=== PATIENT | female | born 1970 | race Caucasian/White ===

== ENCOUNTER → 2016-07-28 | Outpatient (CLI) | payer BC, OTHER | LOC: RAD 01:14 | DX: Z12.31 Encounter for screening mammogram for malignant neoplasm of breast (principal) ==

== ENCOUNTER → 2017-02-14 | Outpatient (CLI) | payer OTHER | LOC: ULTRA 01:05 | DX: N60.01 Solitary cyst of right breast (principal) ==

== ENCOUNTER → 2017-09-19 | Outpatient (CLI) | payer OTHER | LOC: RAD 09:44 | DX: N60.01 Solitary cyst of right breast (principal) ==

== ENCOUNTER → 2018-11-22 | Outpatient (CLI) | payer BC, OTHER | LOC: RAD 09:06 | DX: Z12.31 Encounter for screening mammogram for malignant neoplasm of breast (principal) ==

== ENCOUNTER → 2019-06-25 | Outpatient (CLI) | payer OTHER ==
[~2019-06-25] MED LIST: ALBUTEROL0.63 MG/3 INH; DOXYCYCLINE 10100 M2 PO; ESOMEPRAZOLE MA40 MG PO; LISINOPRIL10 MG PO; MONTELUKAST SOD10 MG PO; NASACORT10.8 ML NASAL; PROAIR HFA8.5 GM INH; QVAR REDIHALE10.6 G1 INH; [UNRECOGNIZED DRUG - OTHER] PO; [UNRECOGNIZED DRUG - OTHER] TOP
== END ==
LOC: CAT 09:57
DX: Z13.6 Encounter for screening for cardiovascular disorders (principal); E78.00 Pure hypercholesterolemia, unspecified; I25.10 Atherosclerotic heart disease of native coronary artery without angina pectoris

== ENCOUNTER 2019-07-04 07:32 | Inpatient (IN) | payer BC, OTHER ==
[2019-07-04] VITALS (11 sets, daily range): BP systolic 104–150; BP diastolic 43–68
[~2019-07-04] VITALS: Ht 157.5 cm; Wt 93.4 kg
--- NOTE | ~2019-07-04 | O ---
[facility] [place] [address] OPERATIVE REPORT Name: TONY OWEN Room #: 458-P [facility] IN M.R.#: [id number] Admission: 07/04/19 Attend Phys: David Osborn MD Discharge: 07/05/19 Date of : 70 Report #: [id number] THIS REPORT FOR: //name// CC: David Carrizales MD PREOPERATIVE DIAGNOSIS: Acalculous cholecystitis. POSTOPERATIVE DIAGNOSES: Acalculous cholecystitis with cholesterolosis. PROCEDURE PERFORMED: Laparoscopic cholecystectomy with intraoperative cholangiogram. SURGEON: David Osborn MD COMPLICATIONS: None. ESTIMATED BLOOD LOSS: 5 mL. PROCEDURE NOTE: With the patient under general anesthesia, abdomen was prepped and draped in sterile fashion. IV antibiotic was administered. A 0.25% Marcaine was used to anesthetize the skin above the umbilicus. The patient has had previous laparoscopic surgery. Timeout was performed. A 2 cm incision was made above the umbilicus. The fascia was identified. Fascia was grasped with a hemostat. Fascia was then opened under visualization, 0 Vicryl suture placed on the fascia edges. Veress needle was then placed through the peritoneum. Abdominal cavity was insufflated with CO2. After creating pneumoperitoneum pressure of 15, 11 mm trocar was placed into the pneumoperitoneum, no harm to underlying tissue. Two 5 mm trocars were placed in the right upper quadrant and another 5 mm trocar was placed in the right epigastrium. Gallbladder was identified. There was a significant degree of cholesterolosis that can be visualized through the gallbladder wall. Lateral to where the gallbladder located, there was adhesion of the fat to the liver edge, which is consistent with adhesions adjacent to the gallbladder, likely from chronic inflammation. The gallbladder was lifted over the liver. The patient was placed in reverse Trendelenburg position, right side tilted up. The peritoneum was dissected free, medial and laterally over the cystic duct. The common duct was partially visualized, more medial and posteriorly located. Cystic duct was isolated. The gallbladder junction to the cystic duct was visualized. There was actually flow in here or tortuosity here. A clip was placed in the junction of cystic duct to the gallbladder. Opening was made in the cystic duct. The cystic duct was milked and there is a thickened material in the cystic duct. The cystic duct was then cleared of this material. The cholangiogram catheter was inserted. Fluoroscopic cholangiogram was obtained. At the first attempt, there was quite a bit of dye that leaked from the cannulation site. The catheter was replaced and a clip was then placed for better seal. A second run on the intraoperative [facility] [address] [place] [address] OPERATIVE REPORT Name: TONY OWEN ANTHONY Room #: 458-P [facility] IN M.R.#: [id number] Admission: 07/04/19 Attend Phys: David Osborn MD Discharge: 07/05/19 Date of : 70 Report #: [id number] cholangiogram showed that the common bile duct filled out well. No filling defect in the common duct and the cholangiogram catheter was identified in the cystic duct. No harm to the common duct. Dye flowed readily into the duodenum. The cholangiogram catheter was then removed. Proximal cystic duct was then clipped x 2 and then divided. The cystic artery branches were identified. The main branch is more lateral, posterior. This was isolated, clipped x 2 proximally and 1 distally and then divided. More anterior smaller vessel was clipped x 2 proximally and 1 distally and divided. Gallbladder was freed from the liver bed. Gallbladder was then retrieved through the infraumbilical port. Gallbladder was opened off the field, no stones identified. There is sludgy bile present and the gallbladder wall contained a significant degree of cholesterol material. Liver bed was checked, hemostasis was obtained. CO2 was evacuated. Trocars were removed. The fascia defect above the umbilicus was closed with [id number] 0 Vicryl x 2. Skin was irrigated, closed with 5-0 PDS. Steri-Strip, Band-Aids applied. The patient tolerated the procedure well and was taken to recovery room. By: 1455 1555 David Osborn MD /nt
--- NOTE | 2019-07-04 14:01 | H ---
[facility] [place] [address] HISTORY AND PHYSICAL Name: TONY OWEN Room #: 458-P ADM IN M.R.#: [id number] Admission: 07/04/19 Attend Phys: David Osborn MD Discharge: Date of : 70 Report #: [id number] THIS REPORT FOR: //name// CC: David Carrizales MD DATE OF SERVICE: 07/04/2019 PREOPERATIVE DIAGNOSES: Cholecystitis, abdominal pain. HISTORY OF PRESENT ILLNESS: The patient is a 49-year-old who has a history of abdominal pain, this started around summertime. She is complaining of nausea associated with the pain. Pain feels like a spasm. This is in the epigastric area. It does not radiate. There is associated nausea. There is associated burping. She says that when she eats, she typically feels better. At times, the pain is burning in nature. The patient has had history of acid reflux and Nexium does seem to help. The patient does not eat much greasy or spicy food. There is family history of gallbladder disease. Mother had her gallbladder removed. There were no stones. The sister also had her gallbladder removed. She did not have any stones either. At times, the patient does have loose stools, also increased frequency of stool. No urinary symptoms. The patient had an ultrasound, which did not show any gallstones. The patient underwent a PIPIDA scan, which did show an elevated ejection fraction 89%. The patient is felt to have her symptomatic gallbladder disease and she is here for laparoscopic cholecystectomy. PAST MEDICAL HISTORY: History of asthma, environmental allergy, acid reflux, overactive bladder. ALLERGIES: She is allergic to PENICILLIN, LEVAQUIN, CIPRO, BACTRIM, MACROBID, CEFTIN, ZITHROMAX, CONAZOLE CREAM. PAST SURGICAL HISTORY: The patient has had bilateral temporal tympanoplasty; mastoidectomy; meniscal tear, right knee; repaired deviated septum; bladder stretching; hysterectomy; tonsillectomy; adenoidectomy. FAMILY HISTORY: GERD and asthma. 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 She does not smoke, occasionally alcohol once a week. REVIEW OF SYSTEMS: No chest pain, shortness of breath or palpitation. PHYSICAL EXAMINATION: GENERAL: The patient is alert and oriented, well-developed, well-nourished [address] [address] HISTORY AND PHYSICAL Name: TONY OWEN ANTHONY Room #: 458-P [facility] IN M.R.#: [id number] Admission: 07/04/19 Attend Phys: David Osborn MD Discharge: Date of : 70 Report #: [id number] female. She is not in acute distress. HEENT: Pupils react to light. Extraocular muscles are intact. NECK: Soft and supple. No masses. LUNGS: Clear to auscultation. HEART: Regular rate and rhythm. No murmur or gallop. ABDOMEN: Soft, nondistended with some tenderness in the right upper quadrant. Mild tenderness in right upper quadrant. No mass, guarding, rigidity or rebound. EXTREMITIES: No cyanosis, clubbing or edema. Motor function and sensory exam normal. IMPRESSION: The patient is a 49-year-old with abdominal pain located in the epigastrium. The pain is consistent with gallbladder issues. There is family history of gallbladder disease. The patient is recommended to undergo laparoscopic cholecystectomy. The patient does not have any stones. Her PIPIDA scan showed high ejection fraction. Procedure discussed. Risk of bleeding, infection and common bile duct injury was discussed. The patient wished to proceed. <ELECTRONICALLY SIGNED> By: David Osborn MD 07/04/19 1401 [id number] [id number] David Osborn MD /nt
--- NOTE | 2019-07-04 15:05 | EKG ---
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
[2019-07-04 15:52] LABS: CALCIUM 9.2 mg/dL (8.5-10.1); CREATININE 1.2 mg/dL (0.6-1.0); POTASSIUM 3.8 mmol/L (3.5-5.1)
--- NOTE | 2019-07-04 19:34 | NUR ---
Received the pt post op, with 4 lap sites wit a band aid c/d/i/. VS stable, no signs or verbalizations of distress have been noted. On 2L of O2 via NC, pt is able to ambulate from bed to toilet and is able to void. Pain managed with medications, POC followed., Endorsed to the night nurse.
[2019-07-05 03:34] VITALS: BP 111/58
--- NOTE | 2019-07-05 07:13 | NUR ---
ASSUMED CARE AROUND 191. AXOX4. LAP SITES CDI WITH BANDAGES. TOLERATED CLEAR LIQUIDS GREAT WITHOUT ANY NAUSEA/VOMITING. DIET ADMVANCED PER MD ORDER THIS AM. NO S/S ACUTE DISTRESS NOTED OR REPORTED AT THIS TIME. CARE TRANSFERRED TO DAY RN AT THIS TIME.
[2019-07-05 08:00] VITALS: BP 110/52
[2019-07-05] MEDS ORDERED: NORCO 5-325 TA1 EAC1 PO (12:06)
[2019-07-05 12:10] VITALS: BP 110/52
--- NOTE | 2019-07-05 12:43 | NUR ---
Assumed pt care at 7am.Pt in and out of bed to br with sba.Assessment completed.vss.But low bp noted.Lisinopril held this am.Pt tolerated meds and diet.Dr Osborn here,dc order noted.Dc summary compiled and reviewed with pt and spouse.Saline lock dc'd.Rx and dc summary copy given to pt.Pt will be dc home in by 1300.
--- NOTE | 2019-07-07 15:07 | PATH ---
[facility] [address] [place] [address] PATHOLOGY RPT PROCEDURE Name: TONY SIERRA ANTHONY Room #: 458-P [facility] IN M.R.#: [id number] Admission: 07/04/19 Date of : 70 Discharge: 07/05/19 Report #: [id number] Path Case #: [id number] [facility] Accession Number: [id number] . 01 Material submitted: . gallbladder - GALLBLADDER . 01 Clinical history: . Cholecystitis . 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 . (SHA:brianne; 07/07/2019) S 07/07/2019 1150 Local . 02 Electronically signed: . Kiet Ortega MD, Pathologist NPI- [id number] . 01 Gross description: . Received in formalin labeled "Tony Sierra, gallbladder," is a previously opened gallbladder measuring 7.4 x 2.8 x 1.4 cm in greatest dimensions. The serosal surface is wrinkled to shaggy, pale pink-purcell and partially adipose-covered in appearance. The mucosal surface is light purcell to light green in appearance, extensively covered in prominent yellow highlights and measuring 0.1 cm in thickness with a gallbladder wall thickness of up to 0.2 cm. No polyps or nodules are identified grossly. Calculi are not present within the specimen or specimen container. Senior Clinical Data Coordinator sections of the infundibulum, body and fundus are submitted in cassette A1. (DAC; 07/04/2019) XDC/XDC 07/04/2019 1907 Local . 02 Pathologist provided ICD-10: K82.4, K81.1 . 02 CPT . 649831 Specimen Comment: A courtesy copy of this report has been sent to [phone] Specimen Comment: [phone] Specimen Comment: Report sent to / DR FOUNTAIN Performed at: [address], [place] [id number] [address] [address] PATHOLOGY RPT PROCEDURE Name: TONY SIERRA [facility] Room #: 458-P DIS IN M.R.#: [id number] Admission: 07/04/19 Date of : 70 Discharge: 07/05/19 Report #: [id number] Path Case #: [id number] MD Sal Fernandez MD Phone: [phone] Performed at: [address] [id number] MD Vale Feldman MD Phone: [phone]
== END 2019-07-05 13:00 | disposition home or self-care (01) | DRG 419 ==
LOC: TBA 07:32 → OR 07:32 → 4W 13:13 → OR 13:13 → ENTRNSPT 07-05 12:42 → 4W 07-05 13:00
PROVIDERS: ADMIT Surgery
PROC: 0FT44ZZ Resection of Gallbladder, Percutaneous Endoscopic Approach (ICD-10-PCS; principal; 2019-07-04)
PROC: BF131ZZ Fluoroscopy of Gallbladder and Bile Ducts using Low Osmolar Contrast (ICD-10-PCS; principal; 2019-07-04)
DX: K81.0 Acute cholecystitis (principal); K21.9 Gastro-esophageal reflux disease without esophagitis; J45.909 Unspecified asthma, uncomplicated; N32.81 Overactive bladder; Z83.79 Family history of other diseases of the digestive system; Z88.0 Allergy status to penicillin; Z88.1 Allergy status to other antibiotic agents; Z88.8 Allergy status to other drugs, medicaments and biological substances; Z90.710 Acquired absence of both cervix and uterus; Z82.5 Family history of asthma and other chronic lower respiratory diseases
CPT/HCPCS: 10047; 50010; 50101; 50249; 50411; 50555; 50558; 51489; 53307; 53310; 55245; 55317; 56462; 56525; 56526; 62110; 62900; 70005